=== PATIENT | female | born 1960 | race Caucasian/White ===

== ENCOUNTER → 2017-03-06 | Outpatient (CLI) | payer MEDICAID | LOC: FIMAGING 13:50 | PROVIDERS: ATTEND Internal Medicine | DX: Z12.31 Encounter for screening mammogram for malignant neoplasm of breast (principal) | CPT/HCPCS: G0202 ==

== ENCOUNTER → 2017-11-03 | Outpatient (CLI) | payer MEDICAID | LOC: FIMAGING 10:19 | PROVIDERS: ATTEND Internal Medicine | DX: E04.1 Nontoxic single thyroid nodule (principal) ==

== ENCOUNTER → 2018-03-12 | Outpatient (CLI) | payer MEDICAID | LOC: FIMAGING 14:12 | PROVIDERS: ATTEND Internal Medicine | DX: Z12.31 Encounter for screening mammogram for malignant neoplasm of breast (principal) ==

== ENCOUNTER → 2018-08-10 | Outpatient (CLI) | payer MEDICAID | LOC: FIMAGING 08:45 | PROVIDERS: ATTEND Internal Medicine | DX: M47.892 Other spondylosis, cervical region (principal); E04.1 Nontoxic single thyroid nodule; K82.4 Cholesterolosis of gallbladder ==

== ENCOUNTER → 2018-08-31 | Outpatient (CLI) | payer MEDICAID | LOC: FIMAGING 18:11 | PROVIDERS: ATTEND Internal Medicine | DX: M50.322 Other cervical disc degeneration at C5-C6 level (principal); G95.20 Unspecified cord compression ==